=== PATIENT | male | born 1970 | race Two or more races ===

== ENCOUNTER 2022-03-18 | Emergency (ER) | payer MEDICAID, OTHER ==
[~2022-03-18] VITALS: Ht 167.6 cm; Wt 77.1 kg
[2022-03-18 07:00] VITALS: BP 142/81
[2022-03-18] MEDS ORDERED: NAP500T PO (07:33)
== END 2022-03-18 08:13 | disposition home or self-care (01) ==
LOC: ER 00:34
DX: S20.212A Contusion of left front wall of thorax, initial encounter (principal); S50.11XA Contusion of right forearm, initial encounter; W11.XXXA Fall on and from ladder, initial encounter; Y93.89 Activity, other specified; Y92.89 Other specified places as the place of occurrence of the external cause; Y99.8 Other external cause status
CPT/HCPCS: 71045; 73090

== ENCOUNTER 2023-02-21 08:00 | Emergency (ER) | payer MEDICAID, OTHER ==
[~2023-02-21] VITALS: Ht 172.7 cm; Wt 122.7 kg
[~2023-02-21 08:00] MED LIST: NAP500T PO
[2023-02-21] MEDS ORDERED: TETANUS-DIPTH-ACEL PERTUSSIS 0.5ML SYR Tdap IM ONE (10:30)
[2023-02-21] MEDS ORDERED: IOHEXOL 300 MG/ML 100ML BOTTLE IJ ONE (10:33)
[2023-02-21] MEDS ORDERED: CYCLOBENZAPRINE HCL 10 MG TAB PO ONE (13:30)
[2023-02-21] MEDS ORDERED: CYCL-839 PO (13:39)
[2023-02-21 15:37] VITALS: BP 145/88
== END 2023-02-21 15:41 | disposition home or self-care (01) ==
LOC: ER 08:00 → EDUNIT# 08:00 → EDBD 08:00 → ER 15:39
DX: S22.089A Unspecified fracture of T11-T12 vertebra, initial encounter for closed fracture (principal); M54.2 Cervicalgia; V43.52XA Car driver injured in collision with other type car in traffic accident, initial encounter; Y93.89 Activity, other specified; Y92.89 Other specified places as the place of occurrence of the external cause; Y99.8 Other external cause status
CPT/HCPCS: 12001; 70450; 71260; 72125; 74177; 90471; 90715; 99285; Q9967